=== PATIENT | female | born 1980 | race Caucasian/White ===

== ENCOUNTER → 2016-06-20 | Outpatient (CLI) | payer MEDICAID ==
[~2016-06-20] MED LIST: ALDACTONE25 MG NG
[2016-06-20 14:28] LABS: BUN 12 mg/dL (7-18)
[2016-06-20 14:39] LABS: GFR (ESTIMATED) 95 ML/MIN (59-)
== END ==
LOC: LAB 12:13
PROVIDERS: Internal Medicine
DX: I10 Essential (primary) hypertension (principal); R60.0 Localized edema; G47.10 Hypersomnia, unspecified

== ENCOUNTER → 2016-07-24 | Outpatient (CLI) | payer MEDICAID ==
--- NOTE | 2016-07-24 14:30 | RADIOLOGY REPORT PS360 ---
US RUQ-(ABD LTD)1ORGAN/QUAD/FU HISTORY: RUQ PAIN ORDERING PHYSICIAN: Randell Tatum MD PATIENT AGE: 35 years COMPARISON: None FINDINGS: PANCREAS: Pancreas is poorly demonstrated due to patient body habitus. LIVER: Diffuse fatty liver RIGHT KIDNEY: Unremarkable. Normal size and echogenicity. No hydronephrosis GALLBLADDER: There are multiple gallstones. No gallbladder wall thickening, pericholecystic fluid, or biliary dilatation is evident. Common bile duct is normal at 4 mm. IMPRESSION: Cholelithiasis, fatty liver
== END ==
LOC: RAD 08:11
DX: R10.11 Right upper quadrant pain (principal); G89.18 Other acute postprocedural pain

== ENCOUNTER → 2016-08-01 | Outpatient (CLI) | payer MEDICAID ==
[2016-08-01 11:43] LABS: HEMOGLOBIN 13.3 g/dL (12.2-16.2); LYMPH # 1.4 K/mm3 (0.7-4.5); LYMPH % 19.8 % (10-50.0)
[2016-08-01 14:37] LABS: BUN 10 mg/dL (7-18)
[2016-08-01 14:39] LABS: GFR (ESTIMATED) 71 ML/MIN (59-)
== END ==
LOC: LAB 10:38
PROVIDERS: Surgery
DX: Z01.812 Encounter for preprocedural laboratory examination (principal)